=== PATIENT | female | born 1960 | race Caucasian/White ===

== ENCOUNTER 2020-07-06 14:22 | Outpatient (REF) | payer MEDICAID, SELFPAY ==
--- NOTE | 2020-07-06 14:23 | XR_ITS ---
EXAMINATION: XR HAND, RIGHT CLINICAL INFORMATION: Pain in right hand COMPARISON: 07/05/2008 TECHNIQUE: PA, lateral, and oblique views of the right hand. FINDINGS: There is severe osteoarthritis of the first interphalangeal joint, worsened from the remote prior study in 2007. There is mild degenerative arthritis of the first carpometacarpal and triscaphe joints and some of the other interphalangeal joints, most notably the second distal interphalangeal joint. No fracture or dislocation seen. Alignment is normal. XR/XR hand RT min 3V IMPRESSION: No acute osseous abnormality. 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
== END 2020-07-06 14:23 | disposition home or self-care (01) ==
LOC: HO.XRAY 14:22
PROVIDERS: Visit Provider Emergency Medicine
DX: R22.31 Localized swelling, mass and lump, right upper limb (principal); M79.641 Pain in right hand
CPT/HCPCS: 73130

== ENCOUNTER → 2020-08-04 10:17 | Outpatient (BNVA) | payer MEDICAID, SELFPAY | PROVIDERS: PCP Family Medicine; Referring Provider Family Medicine; Visit Provider Orthopaedic Surgery | DX: M65.331 Trigger finger, right middle finger (principal); M19.041 Primary osteoarthritis, right hand; R20.0 Anesthesia of skin; R20.2 Paresthesia of skin | CPT/HCPCS: 20550; 99202; J1100 ==

== ENCOUNTER → 2020-09-29 13:44 | Outpatient (BNVA) | payer MEDICAID, SELFPAY | PROVIDERS: PCP Family Medicine; Visit Provider Orthopaedic Surgery | DX: M65.331 Trigger finger, right middle finger (principal) | CPT/HCPCS: 99212 ==

== ENCOUNTER → 2021-04-14 08:44 | Outpatient (BNVA) | payer MEDICAID, SELFPAY | PROVIDERS: PCP Family Medicine; Referring Provider Family Medicine; Visit Provider Physician Assistant | DX: Z12.11 Encounter for screening for malignant neoplasm of colon (principal) | CPT/HCPCS: 99202 ==

== ENCOUNTER 2021-06-04 07:44 | Day surgery (SDC) | payer MEDICAID, SELFPAY ==
--- NOTE | 2021-06-03 09:02 | P.CONAN_ITS ---
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 Father No problems noted. 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 Meds Allergies Allergy/AdvReac Type Severity Reaction Status Date / Time pollen extracts [POLLEN] Allergy Intermediate SNEEZING, Verified 04/14/21 08:58 ITCHY EYES DUST Allergy Mild SNEEZING Uncoded 04/14/21 08:58 Home Medications Medication Instructions Recorded Confirmed Last Taken Type lisinopril 10 mg tablet 10 mg PO DAILY 08/04/20 05/31/21 Unknown History simvastatin 20 mg tablet 20 mg PO DAILY 08/04/20 05/31/21 Unknown History Exam Exam Date and Time: June 03, [id number] Assessment and Plan Assessment Anesthesia Assessment: Chart Reviewed Documented by User: Nithya Menard MD 06/04/21 08:40 PMFSH Past Medical History Medical History Arthritis Deaf High cholesterol History of adenomatous polyp of colon Hypertension Family History Family History Mother No problems noted. Father No problems noted. 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 Meds Allergies Allergy/AdvReac Type Severity Reaction Status Date / Time pollen extracts [POLLEN] Allergy Intermediate SNEEZING, Verified 04/14/21 08:58 ITCHY EYES DUST Allergy Mild SNEEZING Uncoded 04/14/21 08:58 Home Medications Medication Instructions Recorded Confirmed Last Taken Type lisinopril 10 mg tablet 10 mg PO DAILY 08/04/20 05/31/21 Unknown History simvastatin 20 mg tablet 20 mg PO DAILY 08/04/20 05/31/21 Unknown History Exam Airway Mallampati Class: II TM Dist: >3cm Neck ROM: Full Assessment and Plan Assessment Anesthesia Assessment: Anesthesia Plan Discussed Final Anesthetic Review Family History of Problems with Anesthesia: No History of Problems with Anesthesia: No NPO: Yes ASA Class: II Final Preanesthetic Review: No Changes in Pt Med Stat, Meds/Allgs Chart Reviewed, Consent Obtained/Reviewed and Anes Risks/Benef Reviewed Patient Risk: Low Procedure Risk: Low Assessment/Block/Sedation in SS: Assess/Block/Sedation-SS Anesthetic Plan Anesthetic Plan: MAC:
--- NOTE | 2021-06-04 08:12 | MHC.SHP ---
Pre-Procedural Eval Section A Date of Service: 06/04/21 The patient is an INPATIENT: No The History & Physical has been completed within 30 days and I have reviewed it.: No Section B Chief Complaint: Hx of Polyps Details of Present Illness: Colon cancer screening, history of colon polyps Relevant Family History (Specify if Yes): No Relevant Social History: None Present Medications: see Short Stay Collaborative assessment Medical History: Significant History (Deaf High cholesterol History of adenomatous polyp of colon Hypertension) History of Previous Operations: Relevant previous surgery/procedure and date(s) (H/O right wrist surgery History of bilateral breast reduction surgery Hx of colonoscopy) Allergies: Allergies Allergy/AdvReac Type Severity Reaction Status Date / Time pollen extracts [POLLEN] Allergy Intermediate SNEEZING, Verified 04/14/21 08:58 ITCHY EYES DUST Allergy Mild SNEEZING Uncoded 04/14/21 08:58 Review of Systems Sugical H&P ROS: Negative: Constitution, Cardiovascular, Respiratory and Gastrointestinal Exam Surgical H&P Exam: Normal: Heart, Normal: Lungs, Normal: Extremities and Normal: Abdomen Plan Diagnosis/Plan: Unchanged I have reviewed the history and physical and performed a pertinent physical examination on my patient. No changes have occurred unless specified.
--- NOTE | 2021-06-04 08:13 | W.PM.OPN ---
Operative Note Operative Note Date of Service: 06/04/21 Narrative: Pre-op diagnosis:?colon cancer screening, history of colon polyps Post-op diagnosis:?other (Colon polyp, diverticulosis, hemorrhoids) Procedure:? COLONOSCOPY TILL CECUM WITH BIOPSIES Consent: Indications for the procedure and potential complications of bleeding, perforation, reaction to medications and missed diagnosis were discussed with the patient with the help of two sign language interpreters and informed consent was obtained. Instrument: Olympus PCF H 190 L variable stiffness pediatric colonoscope Monitoring: Vital signs and clinical assessment, intermittent blood pressure monitoring, continuous EKG monitoring, Pulse oximetry and Carbon Dioxide monitoring were done throughout the procedure. Colon withdrawl time was 16 minutes. Procedure: The patient was placed in the left lateral decubitis position and pre-procedure medications were administered. After a digital rectal examination of the ano-rectum, the video colonoscope was inserted into the rectum and advanced through the colon to the cecum. The colonoscope was slowly withdrawn in a retrograde panoramic fashion and the colon mucosa was carefully examined including a retroflexed view of the rectum. Findings and interventions are described below. Procedure Difficulty: Colon was long and tortuous and there was some loop formation Without difficulty Findings: Terminal Ileum: Not evaluated Cecum:? Normal Ascending Colon:? Normal Transverse Colon:? Normal Descending Colon:? Moderate diverticulosis Sigmoid Colon:? Severe? diverticulosis Rectum:? A 3-4 mm diminutive appearing polyp removed with the cold biopsy. Ano-rectum:? Moderate internal hemorrhoids Colon preparation:? Good after copious irrigation Impression and Post Procedure Diagnosis: Colonoscopy Findings: One small polyp removed Moderate to severe diverticulosis seen in the left colon Moderate hemorrhoids on retroflexed exam. Plan: Await pathology results Patient has an appointment on 06/17/21 in the GI Clinic with JARRETT Whatley ? . Repeat Colonoscopy interval based on path results - in 5 years if polyps are adenomatous and 10 years if polyps are hyperplastic. Above findings were reviewed with the patient and colon polyps and diverticulosis handouts were given in the discharge area Surgeon:?Kayley Don MD Anesthesia:?MAC (Yefri Live CRNA) Was an Anesthesiologist And Critical Care used for this Procedure?:?Yes Anesthesiologist And Critical Care:?Cleve Bear Estimated blood loss (mL):?0 Pathology:?other (A- RECTAL POLYP) Condition:?stable Disposition:?PACU
[2021-06-04 08:21] VITALS: BP 166/76; PULSE 93; RESP 16; TEMP 36.6; O2SAT 97; BMI 23.3
[2021-06-04] MEDS: Lactated Ringers 1,000 ML 100 ML IVCONT (08:40)
[2021-06-04 09:35] VITALS: BP 119/63; PULSE 72; RESP 14; TEMP 37.1; O2SAT 98
[2021-06-04 09:50] VITALS: BP 137/78; PULSE 85; RESP 16; TEMP 37.1; O2SAT 98
== END 2021-06-04 10:31 | disposition home or self-care (01) ==
PROVIDERS: PCP Family Medicine; Visit Provider Internal Medicine Gastroenterology
PROC: 0DJD8ZZ Inspection of Lower Intestinal Tract, Via Natural or Artificial Opening Endoscopic (ICD-10-PCS; CPT 45378; principal; 2021-06-04 09:10)
DX: Z12.11 Encounter for screening for malignant neoplasm of colon (principal); K62.1 Rectal polyp; K57.30 Diverticulosis of large intestine without perforation or abscess without bleeding; K64.8 Other hemorrhoids; K56.2 Volvulus; Z86.010 Personal history of colon polyps; I10 Essential (primary) hypertension; Z79.899 Other long term (current) drug therapy
CPT/HCPCS: 45380; 88305

== ENCOUNTER 2022-06-29 09:53 | Outpatient (REF) | payer MEDICAID, SELFPAY ==
--- NOTE | ~2022-06-29 | XR_ITS ---
EXAMINATION: XR LUMBOSACRAL SPINE CLINICAL INFORMATION: Low back pain COMPARISON: None TECHNIQUE: Three views of the lumbosacral spine. FINDINGS: Bone alignment is normal. No fracture or dislocation is seen. There is degenerative disc disease at L5-S1. There is lower lumbar spine facet arthritis. XR/XR lumbar spine 2-3V IMPRESSION: Degenerative changes.
--- NOTE | ~2022-06-29 | XR_ITS ---
EXAMINATION: XR SHOULDER, RIGHT CLINICAL INFORMATION: Pain COMPARISON: Previous x-ray November 2012 TECHNIQUE: AP external rotation, Grashey, scapular Y, and axillary views of the right shoulder. FINDINGS: Bone alignment is normal. No fracture or dislocation. The glenohumeral joint is normal. There is arthritis at the acromioclavicular joint. There are degenerative changes of the greater tuberosity. Soft tissues are normal. XR/XR shoulder RT min 2V IMPRESSION: Degenerative changes.
== END 2022-06-29 09:54 | disposition home or self-care (01) ==
LOC: HO.XRAY 09:53
PROVIDERS: PCP Family Medicine; Visit Provider Family Medicine
DX: M25.511 Pain in right shoulder (principal); M54.50 Low back pain, unspecified
CPT/HCPCS: 72100; 73030

== ENCOUNTER 2022-08-31 11:00 | Outpatient (RCR) | payer MEDICAID, SELFPAY | END 2022-10-04 15:56 | disposition home or self-care (01) | LOC: HO.PTCHIC 11:00 | PROVIDERS: PCP Family Medicine; Visit Provider Family Medicine | DX: M25.511 Pain in right shoulder (principal) | CPT/HCPCS: 97035; 97110; 97140; 97162 ==

== ENCOUNTER 2023-06-20 13:36 | Outpatient (REF) | payer MEDICAID, SELFPAY ==
[2023-06-20 16:34] LABS: Estimated Average Glucose 117 mg/dL; Hemoglobin A1c % 5.7 % (<6.0)
[2023-06-20 16:47] LABS: Anion Gap 12 (12-20); Blood Urea Nitrogen 13 mg/dL (9-16); Calcium 9.8 mg/dL (8.4-10.2); Carbon Dioxide 26 mmol/L (22-29); Chloride 109 mmol/L (96-108); Estimated Glomerular Filt Rate > 60; Glucose Random 88 mg/dL (60-115); Potassium 4.1 mmol/L (3.3-5.1); Sodium 143 mmol/L (135-145)
== END 2023-06-20 13:37 | disposition home or self-care (01) ==
LOC: HO.HHCL 13:36
PROVIDERS: Visit Provider Family Medicine
DX: Z00.00 Encounter for general adult medical examination without abnormal findings (principal); I10 Essential (primary) hypertension
CPT/HCPCS: 36415; 80048; 83036

== ENCOUNTER 2023-07-25 09:22 | Outpatient (REF) | payer MEDICAID, SELFPAY ==
[2023-07-25 11:40] LABS: Cholesterol 168 mg/dL (<200); HDL Cholesterol 47 mg/dL (>40); LDL Cholesterol Calculated 98 mg/dL (<100); Triglycerides 115 mg/dL (<150)
== END 2023-07-25 09:23 | disposition home or self-care (01) ==
LOC: HO.HHCL 09:22
PROVIDERS: Visit Provider Family Medicine
DX: E78.5 Hyperlipidemia, unspecified (principal)
CPT/HCPCS: 36415; 80061

== ENCOUNTER 2023-10-13 11:23 | Outpatient (REF) | payer MEDICAID, SELFPAY | END 2023-10-13 11:24 | disposition home or self-care (01) | LOC: HO.HAP 11:23 | PROVIDERS: Visit Provider Family Medicine | DX: Z13.89 Encounter for screening for other disorder (principal) ==

== ENCOUNTER 2024-01-17 10:18 | Outpatient (REF) | payer MEDICAID, SELFPAY ==
[2024-01-17 11:41] LABS: Anion Gap 13 (12-20); Blood Urea Nitrogen 13 mg/dL (9-16); Calcium 9.2 mg/dL (8.4-10.2); Carbon Dioxide 27 mmol/L (22-29); Chloride 108 mmol/L (96-108); Estimated Glomerular Filt Rate > 60; Glucose Random 99 mg/dL (60-115); Sodium 144 mmol/L (135-145)
== END 2024-01-17 10:19 | disposition home or self-care (01) ==
LOC: HO.HHCL 10:18
PROVIDERS: Visit Provider Family Medicine
DX: Z13.89 Encounter for screening for other disorder (principal)
CPT/HCPCS: 36415; 80048

== ENCOUNTER 2024-08-19 07:58 | Outpatient (REF) | payer MEDICAID, SELFPAY | END 2024-08-19 07:59 | disposition home or self-care (01) | LOC: HO.HOSX 07:58 | DX: M65.311 Trigger thumb, right thumb (principal); R20.0 Anesthesia of skin; R20.2 Paresthesia of skin | CPT/HCPCS: 20550; 99212; J1100; J2003 ==

== ENCOUNTER 2024-08-19 11:25 | Outpatient (AMB) | payer MEDICAID, SELFPAY ==
--- NOTE | 2024-08-19 11:31 | MHC.OFFVIS ---
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 Patient reports pain at CMC joint on the volar aspect of the right thumb, ROM limited due to pain, can not turn caps on water bottles. States she opens bottles with her teeth or she asks her to open bottles and jars for her because she is unable to blender and grasp due to her symptoms. Expresses she can not fully bend her thumb all the way down, can not make a full fist due to this and also she has been having some catching and locking. Reports numbness and tingling in B/L hands in the palms and thumbs so she rubs her hands to try and find relief. She uses a soft ball to try and get some relief, when it is too bad she shakes her hands off. Hx of right middle finger trigger release many years ago she thinks and does not know where. Hx of Right middle finger trigger steroid injection on 08/04/2020 w/ Dr Andrews. 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 Patient states that this locking and catching causes her significant pain, it was very similar to the trigger finger she had previously in her right middle finger. Patient states that she did have a trigger finger injection many years ago with Dr. Andrews, and experienced good relief with this. Patient also reports that she had a carpal tunnel release on the right side many years ago, but is unable to recall with which surgeon and when. The patient does report ongoing numbness and tingling of bilateral hands, but expresses that she is not interested in any further diagnostics or treatment at this time. No other acute complaints or concerns at this time. [facility] Medical History Arthritis Deaf High cholesterol History of adenomatous polyp of colon Hypertension Surgical History H/O right wrist surgery History of bilateral breast reduction surgery Hx of colonoscopy Family History Mother No problems noted. Father No problems noted. Social History (Updated 08/19/24 @ 11:45 by ARCELIA Keys) Household Members Other:: - lives wioth and adult son- Alcohol intake: never Patient Tobacco Use Status: Never used Tobacco Current occupation: [employer] / right handed Review of Systems Const All systems reviewed & are unremarkable except as noted in HPI and below Physical Exam Vital Signs: BMI result Body Mass Index 27.7 Extrem Other: Patient is alert, oriented, and in no acute distress. Neuro: Normal sensation of the tips of all digits of the right hand at this time Vascular: Cap refill brisk Pain: Tenderness palpation of the A1 cathryn of the right thumb Pain associated with locking and catching of the right thumb ROM: There is a visible and palpable locking and catching of the patient's right thumb Skin: No lacerations or abrasions. General: No ecchymosis, erythema, or evidence of infection. Psych: Appears grossly normal Affect normal Attitude cooperative Office Procedures AMB Tendon Injection Tendon Injection Details: Right thumb trigger injection [id number] Tendon Sheath Injection All charges added?: Procedure code (CPT) selection complete Assessment & Plan Assessment & Plan (1) Trigger finger of right thumb: Code(s): M65.311 - Trigger thumb, right thumb Category: Medical (2) Numbness and tingling in both hands: Code(s): R20.0 - Anesthesia of skin; R20.2 - Paresthesia of skin Category: Medical Plan 1. Trigger thumb, right Patient is educated about this condition Patient is educated about the treatment options available Patient would like to proceed with injection Injection 1: The risks and benefits of a steroid injection including but not limited to risk of damage to blood vessels, nerves, tendons, infection, skin bleaching, failure to improve symptoms, increased pain, and possible need for further injections or other intervention were discussed with the patient and the patient wishes to proceed with the steroid injection. Once consent was obtained, I sterilely prepped the area over the A1 cathryn of the flexor tendon sheath of the right thumb. I then injected the flexor tendon sheath with a combination of 1 mL of dexamethasone (4mg/ml), and 1% lidocaine. The patient tolerated the procedure well with no complications. If the patient continues to have locking and catching 4-6 weeks following this injection, they may call to schedule appointment to discuss alternative treatment options Follow-up prn 2. Numbness and tingling in bilateral hands Symptoms intermittent, daily, worse at night Status post right carpal tunnel release many years ago Patient states she is not interested in repeat EMG and nerve conduction study at this time Patient is educated that she can follow up with us if she ever becomes interested in an repeat EMG and nerve conduction study Patient states understanding of this Coding Level of Care Code Est Pt Level 3 (22456) Diagnoses Trigger finger of right thumb M65.311 Numbness and tingling in both hands R20.0; R20.2 CPT Codes Tendon Injection - Tendon Injection 1: [id number] Tendon Sheath Injection ([id number])
[2024-08-19 11:43] VITALS: BMI 27.7
== END 2024-08-19 12:18 | disposition home or self-care (01) ==
PROVIDERS: PCP Family Medicine
DX: M65.311 Trigger thumb, right thumb (principal); R20.0 Anesthesia of skin; R20.2 Paresthesia of skin
CPT/HCPCS: 20550; 99213

== ENCOUNTER 2025-07-21 11:50 | Outpatient (REF) | payer MEDICAID, SELFPAY ==
--- OUTSIDE RECORDS SUMMARY | 2025-07-21 11:15 | XMS_ITS | Encounter Summary ---
Author Organization [employer] Address [address] [facility] 7t [place] [address] Care Team Providers Care Senior Technical Manager Name Role Phone Betsy Deng MD Primary Care Provider [phone]- [phone] Mita Cuevas PharmD Unavailable [phone] Johnny Lee MD Unavailable [phone] Kayley Don MD Unavailable [phone] Reason for Referral * Consultation (Routine) - Authorized Specialty Diagnoses / Procedures Referred By Contac t Referred To Contact Pharmacy Diagnoses Primary hypertension Betsy Deng MD [address] [place] [address] Phone: tel: fax: Referral ID Status Reason Start Date Expiration Date Visits Requested Visits Authorized [id number] Authorized Consult and Treat 07/21/2025 07/21/2026 6 6 Scheduling Instructions PT deaf needs systems eng Reason for Visit * Reason Comments Annual Exam Encounter Details Date Type Department Care Team (Late st Contact Info) Description 07/21/2025 11:15 AM EST Office Visit [facility] [address] [place], [place] [phone] Betsy Deng MD [address] [place] [address] Primary hypertension (Primary Dx); Dyslipidemia; Elevated hemoglobin A1c; Encounter for immunization; Dietary counseling; Exercise counseling; Overweight; Other specified health status Social History Tobacco Use Types Packs/Day Years Used Date Smoking Tobacco: Never Smokeless Tobacco: Never Alcohol Use Standard Drinks/Week Comments Never 0 (1 standard drink = 0.6 oz pur e alcohol) Depression Answer Date Recorded Patient Health Questionnaire-9 Score 0 07/19/2024 Patient Health Questionnaire-9 Score 0 07/19/2024 Last PHQ-9: Questionnaire Data Not on file 1 09/18/2023 Housing Stability Answer Date Recorded What is your housing situation today? I have lázaro diaz 07/19/[address] you li ve. Do you have problems with any of the following? None of the above 07/19/2024 Food Insecurity Answer Date Recorded Within the past 12 months, y ou worried that your food would run out before you got money to buy more: Never True 07/19/2024 Within the past 12 months,th e food you bought just didn't last and you didn't have enough money to get more: Never True Transportation Answer Date Recorded In the past 12 months, has l ack of transportation kept you from medical appts, meetings, work or from getting things needed for daily living? No 07/19/2024 Utilities Answer Date Recorded In the past 12 months, has t he electric, gas, oil or water company threatened to shut off services in your home? No 07/19/2024 Depression Answer Date Recorded Patient Health Questionnaire-2 Score 0 07/19/2024 Internet Access Answer Date Recorded Internet Access Q1 No 07/19/2024 Internet Access Q2 Not on file 07/19/2024 Comments Unknown Sex and Gender Information Value Date Recorded Sex Assigned at Female 06/27/2022 10:17 AM EDT Legal Sex Female 10:17 AM EDT Gender Identity Female 06/27/2022 10:17 AM EDT Sexual Orientation Straight 06/27/2022 10 :17 AM EDT documented as of this encounter Last Filed Vital Signs Vital Sign Reading Time Taken Comments Blood Pressure 160/80 07/21/2025 11:30 AM EST Pulse 84 07/21/2025 11:01 AM EST Temperature 37.2 C (98.9 F) 07/21/2025 11:01 AM EST Respiratory Rate 20 07/21/2025 11:01 AM EST Oxygen Saturation 91% 07/21/2025 11:01 AM EST Inhaled Oxygen Concentration - - Weight 65.6 kg (144 lb 9.6 oz) 07/21/2025 11:01 AM EST Height 151.8 cm (4' 11.75 ) 07/21/2025 11:01 AM EST Body Mass Index 28.48 07/21/2025 11:01 AM EST documented in this encounter Progress Notes * Betsy Deng MD - 07/21/2025 11:15 AM EST Carole Perales is a 64 y.o. deaf female with PMHx of hypertension, dyslipidemia, and Lobular carcinoma of breast who presents to the office today here for chronic medical conditions and comprehensive annualevaluation. Congolese Sign Language used during visit. Interim history: Last PCP visit 12/06/24 for blood pressure check Current concerns: BP high. She is not checking at home. Took her meds today. Agrees to check at home and reestablish with [facility] with our PharmD, ROBSON. History cough with lisinopril. Social History Tobacco: denied Drugs: none Alcohol: No Sexuality: Denies current sexual activity Suicide/Depression: The patient denies any present symptoms of depression or anxiety. Review of Systems Constitutional: Negative for fatigue, fever and unexpected weight change. Respiratory: Negative for cough. Cardiovascular: Negative for chest pain. Gastrointestinal: Negative for abdominal pain. Genitourinary: Negative for difficulty urinating. 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 Please make note of this in any referrals. Dyslipidemia 04/06/2012 Lab Results Component Value Date TRIG 115 07/25/2023 CHOL 168 07/25/2023 LDLCHOLCAL 98 07/25/2023 HDL 47 07/25/2023 -continue lifestyle modifications - continue simvastatin 20mg at bedtime -rechecking labs 07/19/24, if LDL>100 will increase statin to 40 mg Hypertension 04/06/2012 -Home BP at goal -pt self discontinue hydrochlorothiazide and brought her lisinopril dose back [id number] to 10mg 06/2023 because she felt it was causing hot flashes at night which resolved with her self changing her meds -she was encouraged to continue lisinopril at 20mg dose -she does not want to add med at this time -trial of lisinopril 20mg only and check home BP *Lisinopril increased to 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 -[facility] -Completed Tamoxifen for risk reduction 07/2016 -Mammogram 3BI RADS-2 negative and showed no new evidence of any new concerns. -Mammogram 04/04/24 BIRADS 2 benign -Follow up yearly mammograms Tubular adenoma of colon 03/14/2013 Pt with tubular adenoma on colonoscopy 11/2010. S/p repeat colonoscopy December [address] Meyer. Repeat colonoscopy 06/04/[address] Don showed mucosal polyp. Next due 5 years. Past Surgical History: Procedure Laterality Date BREAST SURGERY breast reduction CARPAL TUNNEL RELEASE No family history on file. Objective Visit Vitals BP (!) 160/80 Pulse 84 Temp 98.9 ??F (37.2 ??C) (Oral) Resp 20 Ht 4' 11.75 (1.518 m) Wt 144 lb 9.6 oz (65.6 kg) SpO2 91% BMI 28.48 kg/m?? Smoking Status Never BSA 1.66 m?? Physical Exam Constitutional: Appearance: Normal appearance. HENT: Head: Normocephalic. Right Ear: Tympanic membrane normal. Left Ear: Tympanic membrane normal. Ears: Comments: Profound deafness bilaterally Mouth/Throat: Pharynx: Oropharynx is clear. Eyes: Pupils: Pupils are equal, round, and reactive to light. Cardiovascular: Rate and Rhythm: Normal rate and regular rhythm. Heart sounds: Normal heart sounds. Pulmonary: Effort: Pulmonary effort is normal. Breath sounds: Normal breath sounds. Chest: Breasts: Right: Absent. Left: Absent. Comments: Scars from breast reduction. Abdominal: General: Abdomen is flat. Palpations: There is no mass. Tenderness: There is no abdominal tenderness. Musculoskeletal: General: Normal range of motion. Cervical back: Normal range of motion and neck supple. Lymphadenopathy: Cervical: No cervical adenopathy. Skin: General: Skin is warm and dry. Neurological: General: No focal deficit present. Mental Status: She is alert. Psychiatric: Behavior: Behavior normal. 64 y.o. female annual evaluation. Assessment & Plan Primary hypertension -Blood pressure not controlled. -pt self discontinue hydrochlorothiazide and brought her lisinopril dose back from 20mg to 10mg 06/2023 because she felt it was causing hot flashes at night which resolved with her self changing her meds -she was encouraged to continue lisinopril at 20mg dose *Lisinopril increased to 30mg once daily by CDTM 01/17/24 -12/06/24 reports cough since 06/2024, will stop Lisinopril due to suspected beulah- inhibitor cough. -starts losartan (Cozaar) 25 MG 12/06/24 -agrees to referral with [facility] with our PharmD, ROBSON again 07/21/25 Orders: Albumin, Random Urine W/Creatinine; Future Basic Metabolic Panel; Future losartan (Cozaar) 25 MG tablet; Take 1 tablet (25 mg) by mouth Once per day. Referral to Pharmacy CDTM Dyslipidemia -fasting lipid profile ordered 07/17/23 -continue lifestyle modifications -continue simvastatin 20mg at bedtime Orders: Hepatic Function Panel; Future Lipid Panel, Standard; Future simvastatin (Zocor) 20 MG tablet; Take 1 tablet (20 mg) by mouth at bedtime. Elevated hemoglobin A1c Orders: Hemoglobin A1c; Future Encounter for immunization Orders: FLU VACCINE TRIVALENT [id number] (Fluarix) 19 yrs + Dietary counseling Exercise counseling Overweight Dietary Recommendations: Fruits, vegetables, whole grains, protein foods, and fat-free or low-fat dairy products are healthychoices. Eat different types of protein foods in your diet. This can include seafood, lean meats, poultry, beans, peas, lentils, nuts, seeds, soy products, and eggs. Limit foods and beverages higher in added sugars, saturated fat, and sodium. Exercise Recommendations: At least 150 minutes of moderate-intensity physical activity per week, or an equivalent combinationof moderate- and vigorous-intensity activity Other specified health status -next physical exam due after 07/21/26 -eye care facilitated by followed by Dr. Johnny Lee of [facility] -dental home is [facility] -health care proxy filed 07/19/24 Annual Evaluation -Normal growth and development. -Anticipatory guidance discussed. -Preventative care / harm reduction discussed. Follow up in about 6 months (around 01/18/2026) for BP check. This note was drafted using Ambient (AI) technology. The patient/patient's guardian has been informed and has consented to the use of this technology: Yes documented in this encounter Miscellaneous Notes * Assessment & Plan Note - Betsy Deng MD - 07/21/2025 11:15 AM EST Associated Problem(s): Hypertension -Blood pressure not controlled. -pt self discontinue hydrochlorothiazide and brought her lisinopril dose back from 20mg to 10mg 06/2023 because she felt it was causing hot flashes at night which resolved with her self changing her meds -she was encouraged to continue lisinopril at 20mg dose *Lisinopril increased to 30mg once daily by CDTM 01/17/24 -12/06/24 reports cough since 06/2024, will stop Lisinopril due to suspected beulah- inhibitor cough. -starts losartan (Cozaar) 25 MG 12/06/24 -agrees to referral with [facility] with our PharmD, ROBSON again 07/21/25 Orders: Albumin, Random Urine W/Creatinine; Future Basic Metabolic Panel; Future losartan (Cozaar) 25 MG tablet; Take 1 tablet (25 mg) by mouth Once per day. Referral to Pharmacy CDTM * Assessment & Plan Note - Betsy Deng MD - 07/21/2025 11:15 AM EST Associated Problem(s): Dyslipidemia -fasting lipid profile ordered 07/17/23 -continue lifestyle modifications -continue simvastatin 20mg at bedtime Orders: Hepatic Function Panel; Future Lipid Panel, Standard; Future simvastatin (Zocor) 20 MG tablet; Take 1 tablet (20 mg) by mouth at bedtime. * Assessment & Plan Note - Betsy Deng MD - 07/21/2025 11:15 AM EST Associated Problem(s): Other specified health status -next physical exam due after 07/21/26 -eye care facilitated by followed by Dr. Johnny Lee of [facility] -dental home is [facility] -health care proxy filed 07/19/24 documented in this encounter Plan of Treatment Scheduled Orders Name Type Priority Associated Diagnoses Orde r Schedule Hepatic Function Panel Lab Routine Dyslipidemia Expected: 07/16/2025 (Approximate), Expires: 07/16/2026 Lipid Panel, Standard Lab Routine Dyslipidemia Expected: 07/16/2025 (Approximate), Expires: 07/16/2026 Hemoglobin A1c Lab Routine Elevated hemoglobin A1c Expected: 07/16/2025 (Approximate), Expires: 07/16/2026 Basic Metabolic Panel Lab Routine Primary hypertension Expected: 07/16/2025 (Approximate), Expires: 07/16/2026 Scheduled Referrals Name Type Priority Associated Diagnoses Orde r Schedule Referral to Pharmacy CDTM Outpatient Referral Routine Primary hypertension Ordered: 07/21/2025 documented as of this encounter Goals Goal Patient Goal Type Associated Problems Recent Progress Patient-Stated? Author Blood Pressure < 140/90 Blood Pressure 160/80( 025 11:30 AM EST) No Mita Negron, PharmD Record your blood pressure once per day Blood Pressure No Mita Negron PharmD documented as of this encounter Procedures Procedure Name Priority Date/Time Associated Diagnosis Comments ALBUMIN, RANDOM URINE W/CREATININE Routine 07/21/2025 12:00 PM EST Primary hypertension documented in this encounter Results * Albumin, Random Urine W/Creatinine (07/21/2025 12:00 PM EST) Creatinine, Urine 39.57 mg/dL [facility] Microalbumin Urine <5.0 mg/L [facility] Microalbum Creatinine Ratio Ur TNP <30 ug/mg cr [facility] Comment:Unable to calculate albumin/creatinine ratio due to lowmicroalbumin or creatinine result. Urine 07/21/2025 12:0 0 PM EST 07/21/2025 12:56 PM EST Betsy Deng MD LAB URINE ORDERABLES Final Result [facility] [address] [place] [address] [phone] documented in this encounter Visit Diagnoses Diagnosis Primary hypertension- Primary Unspecified essential hypertension Dyslipidemia Other and unspecified hyperlipidemia Elevated hemoglobin A1c Other abnormal blood chemistry Encounter for immunization Dietary counseling Dietary surveillance and counseling Exercise counseling Overweight Other specified health status documented in this encounter Additional Health Concerns Assessment Noted Time PHQ-9 Depression Total Score: 0 07/19/20 24 11:24 AM EST documented as of this encounter Care Teams Senior Technical Manager Relationship Specialty Start Date End Date Betsy Deng MD [address] [place] [address] PCP - General Family Medicine 08/28/18 Mita Cuevas PharmD [address] [place] [address] Pharmacist Internal Medicine 05/23/23 Johnny Lee MD [address] [place] [address] Ophthalmology 07/19/24 Kayley Don MD [address] 3[address] Floor [place] [address] Gastroenterology 10/02/24 JARRETT Carlson [facility] [place] Orthopaedic Surgery 08/21/24 documented as of this encounter
[2025-07-21 14:11] LABS: Hemoglobin A1C 151.1827 umol/L
--- OUTSIDE RECORDS SUMMARY | 2025-07-21 15:49 | XMS_ITS | Encounter Summary ---
Author Organization [employer] Address [address] [facility] 7t [place] [address] Care Team Providers Care Material Combiner Name Role Phone Betsy Deng MD Primary Care Provider Mita Cuevas PharmD Unavailable Johnny Lee MD Unavailable [phone] Kayley Don MD Unavailable [phone] Encounter Details Date Type Department Care Team (Late st Contact Info) Description 07/16/2025 Telephone [facility] [address] [place], [place] [phone] Betsy Deng MD [address] [place], [place] [phone] Social History Tobacco Use Types Packs/Day Years [...] AM EDT documented as of this encounter Miscellaneous Notes * Telephone Encounter - Betsy Deng MD - 07/16/2025 2:29 PM EST Please ask pt to get fasting labs done before monday if she has time. Can go to [facility] if needs to go on Sat. Thank you. documented in this encounter Plan of Treatment Not on file documented as of this encounter Goals Goal Patient Goal Type Associated Problems Recent Progress Patient-Stated? Author Blood Pressure < 140/90 Blood Pressure 160/80( 025 11:30 AM EST) No Piers-Gambl e, Mita, PharmD Record your blood pressure once per day Blood Pressure No Piers-Gambl e, Mita, PharmD documented as of this encounter Visit Diagnoses Not on filedocumented in this encounter Additional Health Concerns Assessment Noted Time PHQ-9 Depression Total Score: 0 07/19/20 24 11:24 AM EST documented as of this encounter Care Teams Material Combiner Relationship Specialty Start Date End Date Betsy Deng MD [address] [place] [phone] PCP - General Family Medicine 08/28/18 Mita Cuevas, Bibi [address] [place] [address] Pharmacist Internal Medicine 05/23/23 Johnny Lee MD [address] [place] [address] Ophthalmology 07/19/24 Kayley Don MD [address] 3rd [place] [address] Gastroenterology 10/02/24 JARRETT Carlson [facility] [place]ics Orthopaedic Surgery 08/21/24 documented as of this encounter
--- OUTSIDE RECORDS SUMMARY | 2025-07-21 15:49 | XMS_ITS | Encounter Summary ---
Author Organization [employer] Address [address] [facility] 7t [place] [address] Care Team Providers Care Saxophone Assembler Name Role Phone Betsy Deng MD Primary Care Provider [phone] Mita Cuevas PharmD Unavailable Johnny Lee MD Unavailable [phone] Kayley Don MD Unavailable [phone] Encounter Details Date Type Department Care Team (Latest Contact Info) Description 07/21/2025 Travel Social History Tobacco Use Types Packs/Day Years [...] AM EDT documented as of this encounter Plan of Treatment Not on file documented as of this encounter Goals Goal Patient Goal Type Associated Problems Recent Progress Patient-Stated? Author Blood Pressure < 140/90 Blood Pressure 160/80( 025 11:30 AM EST) No Mita Negron PharmD Record your blood pressure once per day Blood Pressure No Mita Negron PharmD documented as of this encounter Visit Diagnoses Not on filedocumented in this encounter Additional Health Concerns Assessment Noted Time PHQ-9 Depression Total Score: 0 07/19/20 24 11:24 AM EST documented as of this encounter Care Teams Saxophone Assembler Relationship Specialty Start Date End Date Betsy Deng MD [address] [place] [address] PCP - General Family Medicine 08/28/18 Mita Cuevas, PharmD [address] [place] [address] Pharmacist Internal Medicine 05/23/23 Johnny Lee MD [address] [facility] [address] [place] [address] Ophthalmology 07/19/24 Kayley Don MD [address] 3rd [place] [address] Gastroenterology 10/02/24 JARRETT Carlson [facility] [place] Orthopedics Orthopaedic Surgery 08/21/24 documented as of this encounter
--- OUTSIDE RECORDS SUMMARY | 2025-07-21 15:49 | XMS_ITS | Encounter Summary ---
Author Organization [employer] Address [address] [facility] 7t [place] [address] Care Team Providers Care Engineering Test Specialist Name Role Phone Betsy Deng MD Primary Care Provider Mita Cuevas PharmD Unavailable Johnny Lee MD Unavailable Kayley Don MD Unavailable [phone] Reason for Visit * Reason Onset Date Comments Chart Prep 07/18/2025 Encounter Details Date Type Department Care Team (Late st Contact Info) Description 07/18/2025 Telephone [facility] MEDICINE [address] [place], [place] [phone] Betsy Deng MD [address] [place], [place] [phone] Chart Prep Social History Tobacco Use Types Packs/Day Years [...] encounter Miscellaneous Notes * Telephone Encounter - Queta Ga [place] - 07/18/2025 11:40 AM EST Chart Prep Labs: not done Images: not applicable Referrals: not applicable Vaccines due: Covid and Flu Screenings: not applicable Overdue care gaps: SBIRT and Oral health screening documented in this encounter Plan of Treatment [...] documented as of this encounter Care Teams Engineering Test Specialist Relationship Specialty Start Date End Date Betsy Deng MD [address] [place] [address] PCP - General Family Medicine 08/28/18 Mita Cuevas, PharmD [address] [place] [address] Pharmacist Internal Medicine 05/23/23 Johnny Lee MD [address] [place] [address] Ophthalmology 07/19/24 Kayley Don MD [address]rd [place] [address] Gastroenterology 10/02/24 JARRETT Carlson [facility] [place] Orthopedics Orthopaedic Surgery 08/21/24 documented as of this encounter
--- OUTSIDE RECORDS SUMMARY | 2025-07-21 15:49 | XMS_ITS | Encounter Summary ---
Author Organization [employer] Address [address] [facility] 7t [place] [address] Care Team Providers Care Electrical Engineering Technologist Name Role Phone Betsy Deng MD Primary Care Provider Mita Cuevas PharmD Unavailable [phone] Johnny Lee MD Unavailable [phone] Kayley Don MD Unavailable [phone] Encounter Details Date Type Department Care Team (Late st Contact Info) Description 12/14/2022 Orders Only [facility] [address] [place] [address] Carlita Griffin LPN Social History Tobacco Use Types Packs/Day Years Used Date Smoking Tobacco: Never Smokeless Tobacco: Never Comments Unknown Sex and Gender Information Value Date Recorded Sex Assigned at Female 06/27/2022 10:17 AM EDT Legal Sex Female 10:17 AM EDT Gender Identity Female 06/27/2022 10:17 AM EDT Sexual Orientation Straight 06/27/2022 10 :17 AM EDT documented as of this encounter Plan of Treatment Not on file documented as of this encounter Procedures Procedure Name Priority Date/Time Associated Diagnosis Comments HEMOGLOBIN A1C Routine 06/20/2023 1:41 PM EDT BASIC METABOLIC PANEL Routine 06/20/2023 1:41 PM EDT documented in this encounter Results * (ABNORMAL) Basic Metabolic Panel (06/20/2023 1:41 PM EDT) Sodium 143 135 - 145 mmol/L [facility] Potassium 4.1 3.3 - 5.1 mmol/L [facility] Chloride 109(H) 96 - 108 mmol/L [facility] Carbon Dioxide 26 22 - 29 mmol/L [facility] Anion Gap 12 12 - 20 [facility] Urea Nitrogen (BUN) 13 9 - 16 mg/dL [facility] Creatinine, Serum 0.70 0.5 - 1.4 mg/dL [facility] Estimated Glomerular Filt Rate >60 [facility] Comment:NOTE: For -Am erican individuals, multiply the result by 1.210.Chronic Kidney Disease: Estimated GFR < 60 mL/min/1.91s1Tbjfwd Kidney Disease: Estimated GFR < 15 mL/min/1.73m2 Glucose 88 60 - 115 mg/dL [facility] Calcium 9.8 8.4 - 10.2 mg/dL [facility] 06/20/2023 1:41 PM EDT 06/20/2023 4:15 PM EDT us Betsy Deng MD LAB BLOOD ORDERABLES Final Result [facility] [address] [place] [phone] * Hemoglobin A1c (06/20/2023 1:41 PM EDT) Hemoglobin A1c 5.7 <6.0 % [facility] Comment:Hemoglobin A1C Refer ence Range Adults: 4.8 - 6.0 % Non diabetic: < 6.0 % Goal: < 7.0 %Additional Action Suggested: > 8.0 %Note: Hemoglobin A1c results are invalid for patients with abnormal amounts of HbF. Blood transfusions may impact the HbA1c concentration in the patient sample. Estimated Average Glucose 117 mg/dL [facility] Comment:eAG = Estimated ave rage glucose which is %A1C expressed asaverage glucose, using the formula of the R8F-PzeimykWyngufy Glucose study (ADAG), Diabetes Care, Vol.31,#8,Mar. 2007 06/20/2023 1:41 PM EDT 06/20/2023 4:15 PM EDT Betsy Deng MD LAB BLOOD ORDERABLES Final Result [facility] [address] [place] [phone] [phone] documented in this encounter Visit Diagnoses Not on filedocumented in this encounter Care Teams Electrical Engineering Technologist Relationship Specialty Start Date End Date Betsy Deng MD [address] [place] [address] PCP - General Family Medicine 08/28/18 Mita Cuevas, PharmD [address] [place] [phone] Pharmacist Internal Medicine 05/23/23 Johnny Lee MD [address] [facility] [address] [place] [address] Ophthalmology 07/19/24 Kayley Don MD [address]rd [place] [address] Gastroenterology 10/02/24 J[place]TT Carlson [facility] [place] Orthopaedic Surgery 08/21/24 documented as of this encounter
--- OUTSIDE RECORDS SUMMARY | 2025-07-21 15:49 | XMS_ITS | Encounter Summary ---
Author Organization [employer] Address [address] [facility] 7t [place] [address] Care Team Providers Care Operation Shift Supervisor Name Role Phone Betsy Deng MD Primary Care Provider [phone] Mita Cuevas PharmD Unavailable [phone] Johnny Lee MD Unavailable [phone] Kayley Don MD Unavailable [phone] Encounter Details Date Type Department Care Team (Late st Contact Info) Description 09/11/2022 Abstract [facility] MEDICINE [address] [place], [place] [phone] Betsy Deng MD [address] [place], [place] [phone] Social History Tobacco Use Types Packs/Day Years Used Date Smoking Tobacco: Never Assessed Comments Unknown Sex and Gender Information Value Date Recorded Sex Assigned at Female 06/27/2022 10:17 AM EDT Legal Sex Female 10:17 AM EDT Gender Identity Female 06/27/2022 10:17 AM EDT Sexual Orientation Straight 06/27/2022 10 :17 AM EDT documented as of this encounter Plan of Treatment Not on file documented as of this encounter Procedures Procedure Name Priority Date/Time Associated Diagnosis Comments HPV HIGH RISK PCR Routine 06/24/2022 12: 00 AM EDT PAP SMEAR Routine 06/24/2022 12:00 AM EDT HM MAMMOGRAPHY Routine 03/31/2022 HM COLONOSCOPY Routine 06/04/2021 documented in this encounter Results * HPV High Risk PCR (06/24/2022 12:00 AM EDT) Swab Cervical swab / Unknown Betsy Deng MD LAB MICROBIOLOGY - GENERAL ORDERABLES Final Result Performing Organization Address City/[facility]/ZIP Co de Phone Number [facility] [address] [place] [address] [phone] * Pap Smear (06/24/2022 12:00 AM EDT) Swab Betsy Deng MD LAB CYTOLOGY ORDERABLES Fi nal Result Performing Organization Address City/[facility]/ZIP Co de Phone Number [facility] [address] [place] [phone] * Mammography (03/31/2022) Mammogram BIRADS 2 Anatomical Region Laterality Modality Other Historical Provider HEALTH MAINTENANCE Final Result * Colonoscopy (06/04/2021) Colonoscopy Tubular adenoma with Dr. Don Historical Provider HEALTH MAINTENANCE Final Result documented in this encounter Visit Diagnoses Not on filedocumented in this encounter Care Teams Operation Shift Supervisor Relationship Specialty Start Date End Date Betsy Deng MD [address] [place] [address] PCP - General Family Medicine 08/28/18 Mita Cuevas, JavyD [address] [place] [address] Pharmacist Internal Medicine 05/23/23 Johnny Lee MD [address] [facility] [address] [place] [address] Ophthalmology 07/19/24 Kayley Don MD [address] 3rd Floor [place] [address] Gastroenterology 10/02/24 JARRETT Carlson [facility] Orthopedics Orthopaedic Surgery 08/21/24 documented as of this encounter
--- OUTSIDE RECORDS SUMMARY | 2025-07-21 15:49 | XMS_ITS | Encounter Summary ---
Author Organization [employer] Address [address] [facility] 7t [place] [address] Care Team Providers Care Personnel Technician Name Role Phone Betsy Deng MD Primary Care Provider + [phone] Mita Cuevas PharmD Unavailable Johnny Lee MD Unavailable [phone] Kayley Don MD Unavailable [phone] Reason for Visit * Reason Comments Med Refill Encounter Details Date Type Department Care Team (Late st Contact Info) Description 02/24/2025 Refill [facility] MEDICINE [address] [place], [place] [phone] Betsy Deng MD [address] [place], [place] [phone] Social History Tobacco Use Types Packs/Day Years [...] documented as of this encounter Care Teams Personnel Technician Relationship Specialty Start Date End Date Betsy Deng MD [address] [place] [address] PCP - General Family Medicine 08/28/18 Mita Cuevas, PharmD [address] [place] [address] Pharmacist Internal Medicine 05/23/23 Johnny Lee MD [address] [place] [address] Ophthalmology 07/19/24 Kayley Don MD [address] 3rd Floor [place] [address] Gastroenterology 10/02/24 JARRETT Carlson [facility] [place] Orthopaedic Surgery 08/21/24 documented as of this encounter
--- OUTSIDE RECORDS SUMMARY | 2025-07-21 15:49 | XMS_ITS | Encounter Summary ---
Author Organization [employer] Address [address] [facility] 7t [place] [address] Care Team Providers Care Research Physiologist Name Role Phone Betsy Deng MD Primary Care Provider + [phone] Mita Cuevas PharmD Unavailable Johnny Lee MD Unavailable [phone] Kayley Don MD Unavailable [phone] Encounter Details Date Type Department Care Team (Latest Contact Info) Description 05/30/2019 Abstract [facility] Dental, Provider, DDS Social History Tobacco Use Types Packs/Day Years [...] on file documented as of this encounter Visit Diagnoses Not on filedocumented in this encounter Care Teams Research Physiologist Relationship Specialty Start Date End Date Betsy Deng MD [address] [place], [place] [phone] PCP - General Family Medicine 08/28/18 Mita Cuevas, PharmD [address] [place], [place] [phone] Pharmacist Internal Medicine 05/23/23 Johnny Lee MD [address] [place] [address] Ophthalmology 07/19/24 Kayley Don MD [address] [place] [address] Gastroenterology 10/02/24 JARRETT Carlson [facility] [place] Orthopaedic Surgery 08/21/24 documented as of this encounter
--- OUTSIDE RECORDS SUMMARY | 2025-07-21 15:49 | XMS_ITS | Encounter Summary ---
Author Organization [employer] Address [address] [facility] 7t [place] [address] Care Team Providers Care Janitor Cleaner Name Role Phone Betsy Deng MD Primary Care Provider Mita Cuevas PharmD Unavailable [phone] Johnny Lee MD Unavailable [phone] Kayley Don MD Unavailable [phone] Reason for Visit * Reason Onset Date Comments Lab Orders 07/16/2025 Encounter Details Date Type Department Care Team (Late st Contact Info) Description 07/16/2025 Telephone [facility] MEDICINE [address] [place], [place] [phone] Betsy Deng MD [address] [place], [place] [phone] Lab Orders Social History Tobacco Use Types Packs/Day Years [...] encounter Miscellaneous Notes * Telephone Encounter - Alyx Deleon [place] - 07/16/2025 4:00 PM EST I left a Vm to the pt that she needs to do blood work before the appointment. documented in this encounter Plan of Treatment [...] documented as of this encounter Care Teams Janitor Cleaner Relationship Specialty Start Date End Date Betsy Deng MD [address] [place] [phone] PCP - General Family Medicine 08/28/18 Mita Cuevas, JavyD [address] [place] [address] Pharmacist Internal Medicine 05/23/23 Johnny Lee MD [address] [place] [address] Ophthalmology 07/19/24 Kayley Don MD [address]rd [place] [address] Gastroenterology 10/02/24 JARRETT Carlson [facility] Orthopedics Orthopaedic Surgery 08/21/24 documented as of this encounter
--- OUTSIDE RECORDS SUMMARY | 2025-07-21 15:49 | XMS_ITS | Encounter Summary ---
Author Organization [employer] Address [address] [facility] 7t [place] [address] Care Team Providers Care Service Trainer Name Role Phone Betsy Deng MD Primary Care Provider + [phone] Mita Cuevas PharmD Unavailable Johnny Lee MD Unavailable [phone] Kayley Don MD Unavailable [phone] Reason for Visit * Reason Comments Med Refill Encounter Details Date Type Department Care Team (Late st Contact Info) Description 07/18/2025 Refill [facility] MEDICINE [address] [place], [place] [phone] Betsy Deng MD [address] [place], [place] [phone] Dyslipidemia Social History Tobacco Use Types Packs/Day Years [...] documented as of this encounter Visit Diagnoses Diagnosis Dyslipidemia Other and unspecified hyperlipidemia documented in this encounter Additional Health Concerns Assessment Noted Time PHQ-9 Depression Total Score: 0 07/19/20 24 11:24 AM EST documented as of this encounter Care Teams Service Trainer Relationship Specialty Start Date End Date Betsy Deng MD [address] [place] [address] PCP - General Family Medicine 08/28/18 Mita Cuevas, PharmD [address] [place] [address] Pharmacist Internal Medicine 05/23/23 Johnny Lee MD [address] [place] [address] Ophthalmology 07/19/24 Kayley Don MD [address] 3rd Floor [place] [address] Gastroenterology 10/02/24 JARRETT Carlson [facility] Orthopedics Orthopaedic Surgery 08/21/24 documented as of this encounter
--- OUTSIDE RECORDS SUMMARY | 2025-07-21 15:50 | XMS_ITS | Clinical Summary ---
Author Organization [employer] Address [address] [facility] [address] [place] [address] Care Team Providers Care Tablet Technician Name Role Phone Betsy Deng MD Primary Care Provider [phone]- [phone] Mita Cuevas PharmD Unavailable Johnny Lee MD Unavailable [phone] Kayley Don MD Unavailable [phone] Allergies No known active allergies Medications hydrocortisone 1 % ointmentIndicat ions:Abscess of groin Apply topically if needed in the morning and at bedtime for irritation (itch). 40 g 10/15/19 25 Active simvastatin (Zocor) 20 MG tabletIndicatio ns:Dyslipidemia Take 1 tablet (20 mg) by mouth at bedtime. 90 tablet 3 07/21/20 25 Active losartan (Cozaar) 25 MG tabletIndicatio ns:Primary hypertension Take 1 tablet (25 mg) by mouth Once per day. 30 tablet 11 07/21/20 25 026 Active simvastatin (Zocor) 20 MG tabletIndicatio ns:Dyslipidemia Take 1 tablet (20 mg) by mouth at bedtime. 90 tablet 3 06/27/20 24 025 Discontinued losartan (Cozaar) 25 MG tabletIndicatio ns:Primary hypertension Take 1 tablet (25 mg) by mouth Once per day. 30 tablet 11 12/07/19 25 025 Discontinued(R eorder (will not trigger notification to Pharmacy)) simvastatin (Zocor) 20 MG tabletIndicatio ns:Dyslipidemia TAKE 1 TABLET BY MOUTH ONCE DAILY AT BEDTIME 90 tablet 3 07/18/20 25 025 Discontinued(R eorder (will not trigger notification to Pharmacy)) Active Problems Patient Care Coordination No te Formatting of this note migh t be different from the original. Enrolled in [facility] HTN clinic with Mita Cuevas PharmD Problem Noted Date Diagnosed Date MARKY-inhibitor cough 12/06/2024 Overview (12/06/2024): -12/06/24 reports cough since 06/2024, will stop Lisinopril due to suspected marky-inhibitor cough. -starts losartan (Cozaar) 25 MG 12/06/24 Assessment & Plan (12/06/2024 11:43 AM EDT): -12/06/24 reports cough since 06/2024, will stop Lisinopril due to suspected marky-inhibitor cough. -starts losartan (Cozaar) 25 MG 12/06/24 Abscess of groin 10/07/2024 Assessment & Plan (10/15/2024 1:16 PM EST): Spontaneously draining, I &D is an option but not medically necessary, risks benefits reviewed Advised warm baths tid/qid optional to add bleach Continue abx Major complaint today is itching. Assessment & Plan (10/07/2024 5:15 PM EST): It an abscessed ingrown hair. Start Duricef x 1 week. Apply heat to affected area, avoid poking the lesion and follow-up with PCP or the walk-in center in 1 week, may need I&D or aspiration. Take Tylenol as needed, she will be out of work for 2 days Trigger finger of right thumb 07/24/2024 Overview (08/21/2024): -referred to Hand Surgery 07/19/24 -trigger injection with JARRETT Olivo 08/19/24 Assessment & Plan (07/24/2024 10:06 AM EST): -referred to Hand Surgery 07/19/24 Cardiac risk counseling 12/20/2023 Overview (12/06/2024): Calculated 12/06/24: Intermediate Risk The 10-year ASCVD risk score (Sakina HERNANDEZ et al., 2019) is: 10.6% Values used to calculate the score: Age: 64 years Sex: Female Is Non- : No Diabetic: No Tobacco smoker: No Systolic Blood Pressure: 164 mmHg Is BP treated: Yes HDL Cholesterol: 47 mg/dL Total Cholesterol: 168 mg/dL Lab Results Component Value Date LDLCHOL 121 (H) 06/29/2022 LDLCHOL 103 (H) 04/02/2021 -Tobacco cessation: not applicable -Statin therapy:simvastatin 20 mg -goal LDL < 100, increase statin if repeat LDL > 100 -Importance of moderate physical activity and nutrition interventions discussed. -did not have repeat labs done, reordered 12/06/24 Assessment & Plan (12/06/2024 11:47 AM EDT): Calculated 12/06/24: Intermediate Risk The 10-year ASCVD risk score (Sakina HERANNDEZ, et al., 2019) is: 10.6% Values used to calculate the score: Age: 64 years Sex: Female Is Non- : No Diabetic: No Tobacco smoker: No Systolic Blood Pressure: 164 mmHg Is BP treated: Yes HDL Cholesterol: 47 mg/dL Total Cholesterol: 168 mg/dL Lab Results Component Value Date LDLCHOL 121 (H) 06/29/2022 LDLCHOL 103 (H) 04/02/2021 -Tobacco cessation: not applicable -Statin therapy:simvastatin 20 mg -goal LDL < 100, increase statin if repeat LDL > 100 -Importance of moderate physical activity and nutrition interventions discussed. -did not have repeat labs done, reordered 12/06/24 Assessment & Plan (07/24/2024 10:03 AM EST): Calculated 07/18/24: Intermediate Risk The 10-year ASCVD risk score (Sakina HERNANDEZ et al., 2019) is: 8.2% Values used to calculate the score: Age: 63 years Sex: Female Is Non- : No Diabetic: No Tobacco smoker: No Systolic Blood Pressure: 152 mmHg Is BP treated: Yes HDL Cholesterol: 47 mg/dL Total Cholesterol: 168 mg/dL Lab Results Component Value Date LDLCHOL 121 (H) 06/29/2022 LDLCHOL 103 (H) 04/02/2021 -Tobacco cessation: not applicable -Statin therapy:simvastatin 20 mg -goal LDL < 100, increase statin if repeat LDL > 100 -Importance of moderate physical activity and nutrition interventions discussed. Other specified health status 03/13/2023 Overview (07/21/2025): -next physical exam due after 07/21/26 -eye care facilitated by followed by Dr. Johnny Lee of [facility] [place] -health care proxy filed 07/19/24 Assessment & Plan (07/21/2025 11:53 AM EST): -next physical exam due after 07/21/26 -eye care facilitated by followed by Dr. Johnny Lee of [facility] [place] -health care proxy filed 07/19/24 Assessment & Plan (07/24/2024 10:05 AM EST): -next physical exam due after 07/19/25 -eye care facilitated by followed by Dr. Johnny Lee of [facility] [place] -health care proxy filed 07/19/24 Assessment & Plan (07/17/2023 9:58 AM EST): -next physical exam due after 07/17/2024 -eye care facilitated by -dental [place] is Assessment & Plan (03/13/2023 9:44 AM EDT): -next physical exam due after 06/24/2023. -eye care facilitated by -dental home is Seasonal allergies 12/23/2022 Overview (07/17/2023): -loratadine 10mg prn Assessment & Plan (12/23/2022 11:08 AM EDT): Lucien of loratadine 12/23/2022. Mass of tongue 10/27/2022 Overview (07/17/2023): 3 cm smooth mass at the base of the L tongue. Noted on laryngoscopy on 08/31/[address] Banda. Done for other causes of ear pain. -biopsy pathology results from Sep 25 2020 were negative for malignancy benign squamous mucosa and reactive lympoepithial tissue -no further work up necessary, lymphadenopathy of the neck resolved. Assessment & Plan (12/23/2022 10:35 AM EDT): 3 cm smooth mass at the base of the L tongue. Noted on laryngoscopy on 08/31/[address] Banda. Done for other causes of ear pain. -biopsy pathology results from Sep 25 2020 were negative for malignancy benign squamous mucosa and reactive lympoepithial tissue -no further work up necessary, lymphadenopathy of the neck resolved. Tubular adenoma of colon 03/14/2013 Overview (12/23/2022): Pt with tubular adenoma on colonoscopy 11/2010. S/p repeat colonoscopy December [address] Meyer. Repeat colonoscopy 06/04/[address] Don showed mucosal polyp. Next due 5 years. Assessment & Plan (07/24/2024 10:02 AM EST): Pt with tubular adenoma on colonoscopy 11/2010. S/p repeat colonoscopy December [address] Meyer. Repeat colonoscopy 06/04/[address] Don showed mucosal polyp. Next due 5 years. Assessment & Plan (12/23/2022 10:35 AM EDT): Pt with tubular adenoma on colonoscopy 11/2010. S/p repeat colonoscopy December [address] Meyer. Repeat colonoscopy 06/04/[address] Don showed mucosal polyp. Next due 5 years. Shoulder pain 09/21/2012 Overview (12/23/2022): Physical Therapy. Obtained on 06/24/2022, Result details: Referral was mail to pt to schedule appt with [facility] and also fax to office. Clinical information/comments: X- ray pending. Pt is deaf and will need an certified vehicle fire investigator. and Physical Therapy. Obtained on 06/24/2022, Result details: DUPLICATE REFERRAL. Clinical information/comments: X-ray pending. Pt is deaf and will need an certified vehicle fire investigator. Assessment & Plan (12/23/2022 10:36 AM EDT): Physical Therapy. Obtained on 06/24/2022, Result details: Referral was mail to pt to schedule appt with [facility] and also fax to office. Clinical information/comments: X- ray pending. Pt is deaf and will need an certified vehicle fire investigator. and Physical Therapy. Obtained on 06/24/2022, Result details: DUPLICATE REFERRAL. Clinical information/comments: X-ray pending. Pt is deaf and will need an certified vehicle fire investigator. Lobular carcinoma in situ of breast 07/02/2012 Overview (04/09/2025): Hx LCIS of the left breast noted on pathology from bilateral breast reductions 03/2010. -Followed by [facility]. -Completed Tamoxifen for risk reduction 07/2016 -Mammogram 04/03/2023 BI RADS-2 negative and showed no new evidence of any new concerns. -Mammogram 04/05/25 BIRADS 2 benign -Follow up yearly mammograms Assessment & Plan (07/24/2024 10:05 AM EST): Hx LCIS of the left breast noted on pathology from bilateral breast reductions 03/2010. -Followed by [facility]. -Completed Tamoxifen for risk reduction 07/2016 -Mammogram 04/03/2023 BI RADS-2 negative and showed no new evidence of any new concerns. -Mammogram 04/04/24 BIRADS 2 benign -Follow up yearly mammograms Assessment & Plan (07/17/2023 9:57 AM EST): Hx LCIS of the left breast noted on pathology from bilateral breast reductions 03/2010. -Followed by [facility]. -Completed Tamoxifen for risk reduction 07/2016 -Mammogram 04/03/2023 BI RADS-2 negative and showed no new evidence of any new concerns. -Follow up yearly mammograms Assessment & Plan (12/23/2022 10:34 AM EDT): Hx LCIS of the left breast noted on pathology from bilateral breast reductions 03/2010. -Followed by [facility]. Last seen 06/14/2018, referral today -She completed Tamoxifen for risk reduction 07/2016 -Mammogram 01/22/19 BI RADS-2 negative and showed no new evidence of any new concerns. -Follow up yearly mammograms Dyslipidemia 04/06/2012 Overview (12/06/2024): Lab Results Component Value Date CHOL 168 07/25/2023 TRIG 115 07/25/2023 HDL 47 07/25/2023 LDLCHOLCAL 98 07/25/2023 -continue lifestyle modification -continue simvastatin 20mg at bedtime -rechecking labs 07/19/24, if LDL>100 will increase statin to 40 mg -did not have repeat labs done, reordered 12/06/24 Assessment & Plan (07/21/2025 11:53 AM EST): -fasting lipid profile ordered 07/17/23 -continue lifestyle modifications -continue simvastatin 20mg at bedtime Orders: Hepatic Function Panel; Future Lipid Panel, Standard; Future simvastatin (Zocor) 20 MG tablet; Take 1 tablet (20 mg) by mouth at bedtime. Assessment & Plan (12/06/2024 11:46 AM EDT): Lab Results Component Value Date CHOL 168 07/25/2023 TRIG 115 07/25/2023 HDL 47 07/25/2023 LDLCHOLCAL 98 07/25/2023 -continue lifestyle modification -continue simvastatin 20mg at bedtime -rechecking labs 07/19/24, if LDL>100 will increase statin to 40 mg -did not have repeat labs done, reordered 12/06/24 Assessment & Plan (07/24/2024 10:04 AM EST): Lab Results Component Value Date TRIG 115 07/25/2023 CHOL 168 07/25/2023 LDLCHOLCAL 98 07/25/2023 HDL 47 07/25/2023 -continue lifestyle modifications - continue simvastatin 20mg at bedtime -rechecking labs 07/19/24, if LDL>100 will increase statin to 40 mg Assessment & Plan (07/17/2023 9:50 AM EST): -fasting lipid profile ordered 07/17/23 -continue lifestyle modifications -continue simvastatin 20mg qhs Bilateral deafness 04/06/2012 Overview (07/18/2024): -Patient needs extrusion press operator for all visits. Please make note of this in any referrals. Assessment & Plan (12/06/2024 11:47 AM EDT): -Patient needs extrusion press operator for all visits. Please make note of this in any referrals. Assessment & Plan (07/24/2024 10:03 AM EST): -Patient needs extrusion press operator for all visits. Please make note of this in any referrals. Assessment & Plan (07/17/2023 10:01 AM EST): -Patient needs extrusion press operator for all visits. Please make note of this in any referrals. Assessment & Plan (12/23/2022 10:35 AM EDT): ASL used Hypertension 04/06/2012 Overview (07/21/2025): -Blood pressure not controlled. -pt self discontinue [...] 06/2024, will stop Lisinopril due to suspected marky-inhibitor cough. -starts losartan (Cozaar) 25 MG 12/06/24 -agrees to referral with [facility] with our PharmD, ROBSON again 07/21/25 Assessment & Plan (07/21/2025 11:53 AM EST): -Blood pressure not controlled. -pt self discontinue [...] 06/2024, will stop Lisinopril due to suspected marky-inhibitor cough. -starts losartan (Cozaar) 25 MG 12/06/24 -agrees to referral with [facility] with our PharmD, ROBSON again 07/21/25 Orders: Albumin, Random Urine W/Creatinine; Future Basic Metabolic Panel; Future losartan (Cozaar) 25 MG tablet; Take 1 tablet (25 mg) by mouth Once per day. Referral to Pharmacy CDTM Assessment & Plan (12/06/2024 11:44 AM EDT): -Home BP at goal, BP today in clinic at goal. -pt self discontinue hydrochlorothiazide and brought her [...] and check home BP *Lisinopril increased to 30mg once daily by CDTM 01/17/24 -return in 3 months with home BP 04/23/24 Patient declines follow up for CDTM at this time. If CDTM services are needed in the future, please send a new referral. -12/06/24 reports cough since 06/2024, will stop Lisinopril due to suspected marky-inhibitor cough. -starts losartan (Cozaar) 25 MG 12/06/24 Assessment & Plan (07/24/2024 10:02 AM EST): -Home BP at goal -pt self discontinue [...] and check home BP *Lisinopril increased to 30mg once daily by CDTM 01/17/24 -return in 3 months with home BP 04/23/24 Patient declines follow up for CDTM at this time. If CDTM services are needed in the future, please send a new referral. Assessment & Plan (07/17/2023 9:52 AM EST): -Home BP at goal -pt self discontinue [...] lisinopril 20mg only and check home BP -return in 3 months with home BP Assessment & Plan (03/13/2023 10:52 AM EDT): Slighty elevated. -BP machine given 03/13/2023. -Referral to CDTM done 03/13/2023. Assessment & Plan (12/23/2022 11:08 AM EDT): Elevated at specialist appointment, Pt not sure what it was. -Prescribe BP machine. Resolved Problems Problem Noted Date Diagnosed Date Resolved Date DUB (dysfunctional uterine bleeding) 06/26/2013 07/17/2023 Encounters Date Type Department Care Team Description 07/21/2025 11:15 AM EST Office Visit [facility] [address] [place] [phone] Betsy Deng MD Primary hypertension (Primary Dx); Dyslipidemia; Elevated hemoglobin A1c; Encounter for immunization; Dietary counseling; Exercise counseling; Overweight; Other specified health status 07/21/2025 Travel 07/18/2025 Telephone [facility] [address] [place] [phone] Betsy Deng MD Chart Prep 07/18/[address] [phone] Betsy Deng MD Dyslipidemia 07/16/[address] [phone] Betsy Deng MD Lab Orders 07/16/[address] [phone] Betsy Deng MD 07/14/2025 Patient Outreach [address] [phone] Betsy Deng MD Pre-visit Planning (Pre-visit planning - LVM ) 06/20/2025 Travel from Last 3 Months Immunizations Immunization Administration Dates Next Due Influenza Injectable Quadriv alant Preservative Free IIV4 MDCK 05/23/2023 Influenza injectable quadriv alent IIV4 with preservative 07/11/2018,07/27/2017,07/14/2016,2014 Influenza injectable quadriv alent preservative free 06/24/2022,07/08/2021,11/08/2019 Influenza, IIV3, injectable 07/30/2014, 0 Influenza, Split (incl. albertina fied surface antigen) 07/02/2012 Influenza, seasonal, injecta ble, preservative free 07/21/2025,07/19/2024 Pfizer Covid-19 Vaccine 12+ 07/19/2024 Pneumococcal Conjugate PCV 20 12/06/2024 RSV Bivalent 02/28/2024(Deferred: Patient kristi vidales) TD (adult), 2 Lf tetanus tox oid, preservative free, adsorbed 11/14/2006 Tdap 03/13/2023,07/02/2012 Zoster, Recombinant 07/17/2023,06/24/2022 Social History Tobacco Use Types Packs/Day Years Used Date Smoking Tobacco: Never Smokeless Tobacco: Never Tobacco Cessation:Counseling Given: Not Answered Alcohol Use Standard Drinks/Week Comments Never 0 [...] Orientation Straight 06/27/2022 10 :17 AM EDT Last Filed Vital Signs Vital Sign Reading [...] Mass Index 28.48 07/21/2025 11:01 AM EST Plan of Treatment Health Maintenance Due Date Last Done Comments CT Colonography 1960 FIT DNA/Cologuard 1960 FIT 1960 FOBT 1960 Sigmoidoscopy 1960 Alcohol/Substance Use Screening 1972 Pap Smear 06/24/2025 06/24/2022, 06/24/2022 Depression Screening 07/19/2025 07/19/2024, 07/19/20 SDOH Screening 07/19/2025 07/19/2024 Disability Screening 03/09/2026 03/09/2025 Mammogram 04/05/2026 04/05/2025, 04/2025, 04/05/2024, Additional history exists Colonoscopy 06/04/2026 06/04/2021, 06/04/2021 Colorectal Cancer Screening 06/04/2026 COVID-19 Vaccine ( season) 2026 07/19/2024, 10/15/2021, 12/23/2020, Additional history exists Postponed from 04/28/2025 (Patient Refused) Diabetes: Hemoglobin A1C 07/21/2026 025, 06/20/2023, 06/29/2022 Tobacco Screening 07/21/2026 07/21/2025 Cervical Cancer Screening 06/24/2027 HPV/Cotest 06/24/2027 06/24/2022, 05/29, 11/11/2016 Lipid Panel 07/25/2028 07/25/2023, 1109/2021, 04/02/2021 DTaP/Tdap/Td Vaccines (3 - Td or Tdap) 03/13/2033 03/13/2023, 07/02/2012, 11/14/2006 RSV Patients and Patients Aged 60 years or older (1 - 1-dose 75+ series) 2035 HIV Screening Completed 06/29/2022 Hepatitis C Screening Completed 06/29/2022 , 06/29/2022, 06/29/2022 Zoster Vaccines Completed 07/17/2023, 06/24/2022 Pneumococcal Vaccine: 50+ Years Completed 12/06/2024 Influenza Vaccine Completed 07/21/2025, , 05/23/2023, Additional history exists HIB Vaccines Aged Out No longer eligi ble based on patient's age to complete this topic HPV Vaccines Aged Out No longer eligi ble based on patient's age to complete this topic Hepatitis A Vaccines Aged Out No long er eligible based on patient's age to complete this topic Hepatitis B Vaccines Aged Out No long er eligible based on patient's age to complete this topic IPV Vaccines Aged Out No longer eligi ble based on patient's age to complete this topic Meningococcal B Vaccine Aged Out No l onger eligible based on patient's age to complete this topic Meningococcal Vaccine Aged Out No mayra mor eligible based on patient's age to complete this topic RSV under 20 months Aged Out No longe r eligible based on patient's age to complete this topic Rotavirus Vaccines Aged Out No longer eligible based on patient's age to complete this topic Goals Goal Patient Goal Type Associated Problems Recent Progress Patient-Stated? Author Blood Pressure < 140/90 Blood Pressure 160/80( 025 11:30 AM EST) No Gerardos-Gambl Mita sadler, PharmD Record your blood pressure once per day Blood Pressure No Gerardos-Gambl e, Mita, PharmD Procedures Procedure Name Priority Date/Time Associated Diagnosis Comments ALBUMIN, RANDOM URINE W/CREATININE Routine 07/21/2025 12:00 PM EST Primary hypertension HEMOGLOBIN A1C Routine 07/21/2025 12:00 PM EST Primary hypertension HM MAMMOGRAPHY Routine 04/05/2025 10:31 AM EDT LIPID PANEL, STANDARD Routine 07/25/2023 9:24 AM EST Dyslipidemia HEPATITIS C ANTIBODY (EXTERNAL RESULTS ONLY) Routine 06/29/2022 11:01 AM EDT HIV 1/2 ANTIGEN/ANTIBODY, FOURTH GENERATION W/RFL Routine 06/29/2022 9:20 AM EDT HPV HIGH RISK PCR Routine 06/24/2022 12: 00 AM EDT PAP SMEAR Routine 06/24/2022 12:00 AM EDT HM COLONOSCOPY Routine 06/04/2021 from Last 3 Months or Most Recently Relevant to Health Maintenance Results * Albumin, Random Urine W/Creatinine (07/21/2025 12:00 PM EST) Creatinine, Urine 39.57 mg/dL [facility] Microalbumin Urine <5.0 mg/L [facility] Microalbum Creatinine Ratio Ur TNP <30 ug/mg cr [facility] Comment:Unable to calculate albumin/creatinine ratio due to lowmicroalbumin or creatinine result. Urine 07/21/2025 12:0 0 PM EST 07/21/2025 12:56 PM EST Betsy Deng MD LAB URINE ORDERABLES Final Result Performing Organization Address [facility] de Phone Number [facility] [address] [place] [phone] * (ABNORMAL) Hemoglobin A1c (07/21/2025 12:00 PM EST) Hemoglobin A1c 6.2(H) <6.0 % [facility] Comment:Hemoglobin A1C Refer ence Range Adults: 4.8 - 6.0 % Non diabetic: < 6.0 % Goal: < 7.0 %Additional Action Suggested: > 8.0 %Note: Hemoglobin A1c results are invalid for patients with abnormal amounts of HbF. Blood transfusions may impact the HbA1c concentration in the patient sample. Estimated Average Glucose 131 mg/dL [facility] Comment:eAG = Estimated ave rage glucose which is %A1C expressed asaverage glucose, using the formula of the R7H-YetohlmBdaozri Glucose study (ADAG), Diabetes Care, Vol.31,#8,Mar. 2007 Blood Venous blood specimen / Unknown 07/21/2025 12:00 PM EST 07/21/2025 1:04 PM EST us Betsy Deng MD LAB BLOOD ORDERABLES Final Result Performing Organization Address [facility] Co de Phone Number [facility] [address] [place] [address] [phone] * Mammography (04/05/2025 10:31 AM EDT) Mammogram BIRADS 2 Normal, Abnormal, BIRADS 1 , BIRADS 2 Anatomical Region Laterality Modality Other Historical Provider HEALTH MAINTENANCE Edited Result - Final * Lipid Panel, Standard (07/25/2023 9:24 AM EST) Triglycerides 115 <150 mg/dL [facility] Comment:Desirable Triglyceri de: less than 150 mg/dLBorderline High Triglyceride 150-199 mg/dLHigh Triglyceride: 200-499 mg/dLVery High Triglyceride: greater than or equal to 5OO mg/dL Cholesterol 168 <200 mg/dL [facility] Comment:Desirable Cholestero l: less than 200 mg/dLBorderline High Cholesterol: 200-239 mg/dLHigh Cholesterol: greater than 239 mg/dL LDL Cholesterol Calculated 98 <100 mg/dL [facility] Comment:Desirable LDL: less than 100 mg/dLNear Optimal/Above Optimal LDL: 110- 129 mg/dLBorderline High LDL: 130-159 mg/dLHigh LDL: 160-189 mg/dLVery High LDL: greater than or equal to 190 mg/dL HDL Cholesterol 47 >40 mg/dL [facility] Comment:Desirable HDL: great er than 40 mg/dL Note: This HDL assay may give artificially low results in patients with liver disease. Blood Venous blood specimen / Unknown 07/25/2023 9:24 AM EST 07/25/2023 11:03 AM EST Betsy Deng MD LAB BLOOD ORDERABLES Final Result [facility] [address] [place] [phone] * Hepatitis C Antibody (06/29/2022 11:01 AM EDT) Hepatitis C Antibody Nonreactive Blood 06/29/2022 11:0 1 AM EDT Iliana Houston MD POINT OF CARE TEST ENTER/ EDIT ORDERABLES Final Result * HIV 1/2 ANTIGEN/ANTIBODY,FOURTH GENERATION W/RFL (06/29/2022 9:20 AM EDT) HIV-1/2 ANTIGEN AND ANTIBODIES, 4TH GENERATION W/ REFLEX NON-REACT [facility]ARE NON-REACT [facility] Comment: HIV-1 antigen and HIV-1/HIV-2 antibodies were not detected. There is no laboratory evidence of HIV infection. PLEASE NOTE: This information has been disclosed to you from records whose confidentiality may be protected by state law. If your state requires such protection, then the state law prohibits you from making any further disclosure of the information without the specific written consent of the person to whom it pertains, or as otherwise permitted by law. A general authorization for the release of medical or other information is NOT sufficient for this purpose. For additional information please refer to http://education.Food.ee/faq/IVU587 (This link is being provided for informational/ educational purposes only.) The performance of this assay has not been clinically validated in patients less than 2 years old. 06/29/2022 9:20 AM EDT us Betsy Deng MD LAB BLOOD ORDERABLES Final Result Performing Organization Address [facility] Co de Phone Number CONVERTED LEGACY LABS * HPV High Risk PCR (06/24/2022 12:00 AM EDT) Swab Cervical swab / Unknown Betsy Deng MD LAB MICROBIOLOGY - GENERAL ORDERABLES Final Result Performing Organization Address City/State/[facility] Co de Phone Number [facility] [address] [place] [phone] * Pap Smear (06/24/2022 12:00 AM EDT) Swab Betsy Deng MD LAB CYTOLOGY ORDERABLES Fi nal Result [facility] [address] [place] [address] [phone] * Colonoscopy (06/04/2021) Colonoscopy Tubular adenoma with Dr. Arian Garcia us Historical Provider HEALTH MAINTENANCE Final Result from Last 3 Months or Most Recently Relevant to Health Maintenance Insurance [employer] C3 Care Teams Tablet Technician Relationship Specialty Start Date End Date [place], MD Betsy [address] [place] [phone] PCP - General Family Medicine 08/28/18 Mita Cuevas, JavyD [address] [place] [phone] Pharmacist Internal Medicine 05/23/23 Johnny Lee MD [address] [place] [address] Ophthalmology 07/19/24 Kayley Don MD [address] 3rd [place] [address] Gastroenterology 10/02/24 JARRETT Carlson [facility] Orthopedics Orthopaedic Surgery 08/21/24
--- OUTSIDE RECORDS SUMMARY | 2025-07-21 15:50 | XMS_ITS | Encounter Summary ---
Author Organization [employer] Address [address] [facility] 7t [place] [address] Care Team Providers Care Budget Officer Name Role Phone Betsy Deng MD Primary Care Provider [phone] Mita Cuevas PharmD Unavailable Johnny Lee MD Unavailable Kayley Don MD Unavailable [phone] Reason for Visit * Reason Comments Med Refill Encounter Details Date Type Department Care Team (Late st Contact Info) Description 06/11/2023 Refill [facility] MED[facility]INE [address] [place], [place] [phone] Gayle White MD [address] [place] [address] Social History Tobacco Use Types Packs/Day Years [...] Pressure 160/80( 025 11:30 AM EST) No GerardosMita Ramirez, PharmD documented as of this encounter Visit Diagnoses Not on filedocumented in this encounter Care Teams Budget Officer Relationship Specialty Start Date End Date Ish, Betsy, MD [address] [place] [address] PCP - General Family Medicine 08/28/18 Mita Cuevas, JavyD [address] [place] [address] Pharmacist Internal Medicine 05/23/23 Johnny Lee MD [address] [place] [address] Ophthalmology 07/19/24 Kayley Don MD [address] 3rd [place] [address] Gastroenterology 10/02/24 JARRETT Carlson [facility] [place]ics Orthopaedic Surgery 08/21/24 documented as of this encounter
--- OUTSIDE RECORDS SUMMARY | 2025-07-21 15:50 | XMS_ITS | Encounter Summary ---
Author Organization [employer] Address [address] [facility] 7t [place] [address] Care Team Providers Care Extra Gang Supervisor Name Role Phone Betsy Deng MD Primary Care Provider [phone] Mita Cuevas PharmD Unavailable Johnny Lee MD Unavailable [phone] Kayley Don MD Unavailable [phone] Encounter Details Date Type Department Care Team (Late st Contact Info) Description 05/25/2023 Abstract [facility] [address] [place], [place] [phone] Betsy Deng MD [address] [place], [place] [phone] Social History Tobacco Use Types Packs/Day Years [...] on filedocumented in this encounter Care Teams Extra Gang Supervisor Relationship Specialty Start Date End Date Betsy Deng MD [address] [place] [address] PCP - General Family Medicine 08/28/18 Mita Cuevas, PharmD [address] [place] [address] Pharmacist Internal Medicine 05/23/23 Johnny Lee MD [address] [facility] [address] [place] [address] Ophthalmology 07/19/24 Kayley Don MD [address] [facility] [address] [place] [address] Gastroenterology 10/02/24 JARRETT Carl[place] [facility] [place] Orthopaedic Surgery 08/21/24 documented as of this encounter
--- OUTSIDE RECORDS SUMMARY | 2025-07-21 15:50 | XMS_ITS | Encounter Summary ---
Author Organization [employer] Address [address] [facility] 7t [place] [address] Care Team Providers Care Box Toe Cutter Name Role Phone Betsy Deng MD Primary Care Provider + [phone] Mita Cuevas PharmD Unavailable Johnny Lee MD Unavailable [phone] Kayley Don MD Unavailable [phone] Reason for Visit * Reason Comments Med Refill Encounter Details Date Type Department Care Team (Late st Contact Info) Description 03/13/2025 Refill [facility] [address] [place], [place] [phone] Betsy Deng MD [address] [place], [place] [phone] Social History Tobacco Use Types Packs/Day Years [...] documented as of this encounter Care Teams Box Toe Cutter Relationship Specialty Start Date End Date Betsy Deng MD [address] [place] [address] PCP - General Family Medicine 08/28/18 Mita Cuevas, PharmD [address] [place] [address] Pharmacist Internal Medicine 05/23/23 Johnny Lee MD [address] [place] [address] Ophthalmology 07/19/24 Kayley Don MD [address]rd Floor [place] [address] Gastroenterology 10/02/24 JARRETT Carlson [facility] [place] Orthopedics Orthopaedic Surgery 08/21/24 documented as of this encounter
--- OUTSIDE RECORDS SUMMARY | 2025-07-21 15:50 | XMS_ITS | Encounter Summary ---
Author Organization [employer] Address [address] [facility] [address] [place] [address] Care Team Providers Care [employer] Name Role Phone Betsy Deng MD Primary Care Provider [phone]- [phone] Mita Cuevas PharmD Unavailable Johnny Lee MD Unavailable [phone] Kayley Don MD Unavailable [phone] Encounter Details Date Type Department Care Team (Late st Contact Info) Description 04/09/2025 Orders Only [facility] PEDS [address] [place] [address] Provider, MD Iliana Social History Tobacco Use Types Packs/Day Years [...] is your housing situation today? I have lázarorina diaz 07/19/[address] you [...] once per day Blood Pressure No Mita Negron, PharmD documented as of this encounter Procedures Procedure Name Priority Date/Time Associated Diagnosis Comments MAMMOGRAPHY Routine 04/05/2025 10:49 AM EDT documented in this encounter Results * Hm Mammography (04/05/2025 10:49 AM EDT) Anatomical Region Laterality Modality Other Historical Provider HEALTH MAINTENANCE Final Result documented in this encounter Visit Diagnoses Not on filedocumented in this encounter Additional Health Concerns Assessment Noted Time PHQ-9 Depression Total Score: 0 07/19/20 24 11:24 AM EST documented as of this encounter Care Teams [employer] Relationship Specialty Start Date End Date Betys Deng MD [address] [place] [address] PCP - General Family Medicine 08/28/18 Mita Cuevas, PharmD [address] [place] [address] Pharmacist Internal Medicine 05/23/23 Johnny Lee MD 2 [facility] [address] [place] [address] Ophthalmology 07/19/24 Kayley Don MD 11 [facility] 3rd [place] [address] Gastroenterology 10/02/24 JARRETT Carlson [facility] [place] Orthopedics Orthopaedic Surgery 08/21/24 documented as of this encounter
[2025-07-21 16:16] LABS: Alanine Aminotransferase 24 U/L (0-31); Albumin Level 4.3 g/dL (3.5-5.0); Alkaline Phosphatase 101 U/L (39-117); Anion Gap 10 (12-20); Aspartate Amino Transferase 29 U/L (5-31); Blood Urea Nitrogen 14 mg/dL (9-16); Calcium 9.3 mg/dL (8.4-10.2); Carbon Dioxide 28 mmol/L (22-29); Chloride 109 mmol/L (96-108); Cholesterol 174 mg/dL (<200); Estimated Glomerular Filt Rate > 60; HDL Cholesterol 52 mg/dL (>40); Potassium 3.9 mmol/L (3.3-5.1); Sodium 143 mmol/L (135-145); Total Protein 7.1 g/dL (6.5-8.0); Triglycerides 134 mg/dL (<150)
== END 2025-07-21 11:51 | disposition home or self-care (01) ==
LOC: HO.HHCL 11:50
PROVIDERS: PCP Family Medicine; Visit Provider Family Medicine
DX: I10 Essential (primary) hypertension (principal); E78.5 Hyperlipidemia, unspecified
CPT/HCPCS: 36415; 80048; 80061; 80076; 82043; 82570; 83036